=== PATIENT | female | born 1965 | race Caucasian/White ===

== ENCOUNTER 2018-09-20 06:08 | Day surgery (SDC) | payer BC ==
[~2018-09-20] VITALS: Ht 160 cm; Wt 67.7 kg
[2018-09-20 06:32] VITALS: Ht 160 cm; Wt 67.7 kg
[2018-09-20] MEDS ORDERED: INHALER (06:36)
[2018-09-20 07:31] VITALS: BP 162/95; PULSE 61; RESP 15
[2018-09-20] MEDS ORDERED: MIDAZOLAM 1 MG/ML 2 ML INJ ONE ×2 (08:19)
[2018-09-20] MEDS ORDERED: FENTAnyl 50 MCG/ML VIAL ONE (08:19)
[2018-09-20 08:42] VITALS: BP 135/86; PULSE 60; RESP 16
== END 2018-09-20 11:09 | disposition home or self-care (01) ==
LOC: GIL 06:08
PROVIDERS: ATTEND Internal Medicine Gastroenterology
DX: Z12.11 Encounter for screening for malignant neoplasm of colon (principal); K64.8 Other hemorrhoids
CPT/HCPCS: 45378; J2250; J3010; Z7610